=== PATIENT | male | born 1960 | race American Indian/Alaskan Native ===

== ENCOUNTER 2017-08-18 09:24 | Emergency (ER) | payer OTHER ==
[2017-08-18 09:25] VITALS: BMI 29.6
[2017-08-18 09:35] VITALS: RESP 18; TEMP 97.5
[2017-08-18] MEDS ORDERED: Albuterol-Ipratrop 3 mg / 0.5 (3 ml) UD ONE (09:49)
--- NOTE | 2017-08-18 09:54 | C.PDOC ---
History Of Present Illness 56-YEAR-OLD MALE, PRESENTS TO THE EMERGENCY DEPARTMENT WITH COMPLAINTS OF RECUR FACIAL IRRITATION, "LEAKING" X 3 DAYS. B/L LOWER FACE, PERIORAL. +OCC CRUSTING, IRRITATION. "LIQUID COMES OUT AND AREA FEELS TIGHT". PS FIRST OCCURRED 1 MO AGO , S/P UNK ABX FINISHED 1 WEEK AGO. SX INITIALLY RESOLVED W ABX BUT NOW RECUR. NO FEVER. DENIES HO DM, TRAUMA. DENIES DENTAL PAIN, INTRAORAL DRAINAGE. PS HAS NOT SHAVED SINCE SX FIRST OCCURRED ALSO CO ASTHMA EXAC NAVAL ARCHITECT. S/P NEB NAVAL ARCHITECT W MOD RELIEF. CO PERSIST WHEEZE EXAM MILD DIST NONTOXIC HEENT NEG SKIN SUPERFICIAL LESION B/L PERIORAL W MIN LOCAL INDURATION. CLEAR, WATERY FILM POSSIBLE IMPETIGO? LIMITED DUE TO FACIAL HAIR AND SKIN TONE. NO ULCERATION, GROSS ERYTHEMA. LUNGS +GROSS AUDIBLE EXP WHEEZE NO RETRACTION SPEAKING FULL SENTENCES Time Seen by Provider: 08/18/17 09:47 Chief Complaint (Nursing): Abnormal Skin Integrity History Per: Patient History/Exam Limitations: no limitations Onset/Duration Of Symptoms: Days Current Symptoms Are (Timing): Still Present Past Medical History Reviewed: Historical Data, Nursing Documentation, Vital Signs Vital Signs: Last Vital Signs Temp 97.5 F L 08/18/17 09:28 Pulse 75 08/18/17 10:18 Resp 18 08/18/17 10:18 BP 132/74 08/18/17 10:18 Pulse Ox 97 08/18/17 10:18 - Medical History PMH: Asthma, Bronchitis, COPD - [facility] Procedures TETANUS TOXOID ADMINIST (03/25/14) Family History: States: No Known Family Hx - Social History Hx Tobacco Use: No Hx Alcohol Use: No Hx Substance Use: No - Immunization History Hx Tetanus Toxoid Vaccination: No Hx Influenza Vaccination: No Hx Pneumococcal Vaccination: No Review Of Systems Except As Marked, All Systems Reviewed And Found Negative. Constitutional: Positive for: Other (facial irritation and leaking). Negative for: Fever Cardiovascular: Negative for: Chest Pain Gastrointestinal: Negative for: Nausea, Vomiting Neurological: Negative for: Weakness, Numbness Physical Exam - Physical Exam Appears: Non-toxic, No Acute Distress, Other (mild distress) Skin: Warm, Dry, Other (SUPERFICIAL LESION B/L PERIORAL W MIN LOCAL INDURATION. CLEAR, WATERY FILM POSSIBLE IMPETIGO? LIMITED DUE TO FACIAL HAIR AND SKIN TONE. NO ULCERATION, GROSS ERYTHEMA.) Head: Atraumatic, Normacephalic Eye(s): bilateral: Normal Inspection, PERRL Nose: Normal Oral Mucosa: Moist Lips: Normal Appearing Neck: Normal ROM Chest: Symmetrical Cardiovascular: Rhythm Regular, No Murmur Respiratory: No Accessory Muscle Use, Other (+GROSS AUDIBLE EXP WHEEZE NO RETRACTION SPEAKING FULL SENTENCES) Extremity: Normal ROM ED Course And Treatment O2 Sat by Pulse Oximetry: 96 Reevaluation Time: 10:13 Reassessment Condition: Improved (PS TOOK AUGMENTIN AND BACTRIM "BUT SOMETIMES I MISSED DOSES". DC TOPICAL ABX, ADVISED FU DERMATOLOGY IF RECUR SX) Disposition Counseled Patient/Family Regarding: Diagnosis, Need For Followup, Rx Given - Disposition Referrals: YOUR,PMD [Other] Disposition: HOME/ ROUTINE Disposition Time: 10:14 Condition: IMPROVED Prescriptions: Mupirocin 2% Ointment [Bactroban Ointment] 22 gm EXT TID #1 tube predniSONE [Prednisone] 60 mg PO DAILY #12 tab Instructions: Impetigo (ED) Forms: [employer] (Mohawk) - Clinical Impression Clinical Impression: Impetigo, Asthma exacerbation - Scribe Statement The provider has reviewed the documentation as recorded by the Scribe (Mali Bernardo) All medical record entries made by the Scribe were at my direction and personally dictated by me. I have reviewed the chart and agree that the record accurately reflects my personal performance of the history, physical exam, medical decision making, and the department course for this patient. I have also personally directed, reviewed, and agree with the discharge instructions and disposition.
[2017-08-18] MEDS ORDERED: Albuterol 0.083% Inhal Sol (2.5 mg/3 mL) UD INH STA (10:00)
[2017-08-18 10:19] VITALS: BP 132/74; PULSE 75
[2017-08-18 18:08] VITALS: O2SAT 96
== END 2017-08-18 10:21 | disposition home or self-care (01) ==
LOC: C.ER 09:24
DX: L01.00 Impetigo, unspecified (principal); J45.901 Unspecified asthma with (acute) exacerbation

== ENCOUNTER 2017-09-09 22:18 | Emergency (ER) | payer OTHER ==
[2017-09-09 22:18] VITALS: BMI 29.6
[2017-09-09 22:30] VITALS: BP 165/79; PULSE 89; RESP 20; TEMP 98; O2SAT 95
[2017-09-09] MEDS ORDERED: Albuterol-Ipratrop 3 mg / 0.5 (3 ml) UD ONE (22:53)
[2017-09-09] MEDS: Albuterol 0.083% Inhal Sol (2.5 mg/3 mL) UD INH SCH (23:20)
--- NOTE | 2017-09-09 23:48 | C.PDOC ---
History Of Present Illness 56 year old male presents to the ER with a complaint of intermittent bumps to the face for the past month at his hairline. Patient was seen at [facility] and started on antibiotics, reports he was seen here as well and given antibiotic ointment with no relief. Patient also complains of asthma exacerbation, he reports having some chest tightness and wheezing; he took his albuterol at home with no relief. Denies chest pain or drainage. (Annette Oconnor) History Per: Patient History/Exam Limitations: no limitations Onset/Duration Of Symptoms: Days Current Symptoms Are (Timing): Still Present Location Of Injury: Anterior: Face (bumps) Recent travel outside of the [place]: No Time Seen by Provider: 09/09/17 22:37 Chief Complaint (Nursing): Abnormal Skin Integrity Past Medical History Reviewed: Historical Data, Nursing Documentation, Vital Signs - Medical History PMH: Asthma, Bronchitis, COPD Surgical History: No Surg Hx Family History: States: Unknown Family Hx - Social History Hx Tobacco Use: No Hx Alcohol Use: No Hx Substance Use: No - Immunization History Hx Tetanus Toxoid Vaccination: No Hx Influenza Vaccination: No Hx Pneumococcal Vaccination: No Vital Signs: Last Vital Signs Temp 98 F 09/09/17 22:24 Pulse 89 09/09/17 22:24 Resp 20 09/09/17 22:24 BP 165/79 H 09/09/17 22:24 Pulse Ox 95 09/10/17 06:20 - [facility] Procedures TETANUS TOXOID ADMINIST (03/25/14) Review Of Systems Respiratory: Positive for: Wheezing, Other (Chset tightness). Negative for: Cough Skin: Positive for: Rash. Negative for: Other (Drainage) Physical Exam - Physical Exam Appears: Non-toxic, No Acute Distress Skin: Warm, Dry, Rash (Multiple palpable, indurated tender pimple-like lesions to beardline with 2 small nonfluctuant wounds; decreased visualization due to facial hair) Head: Atraumatic, Normacephalic Eye(s): bilateral: Normal Inspection Oral Mucosa: Moist Chest: Symmetrical, No Tenderness Cardiovascular: Rhythm Regular Respiratory: No Rales, Rhonchi (Scattered), Wheezing (Scattered) Neurological/Psych: Oriented x3, Normal Speech ED Course And Treatment O2 Sat by Pulse Oximetry: 95 (Room air) Pulse Ox Interpretation: Normal Progress Note: Benadryl, prednisone, and albuterol nebulizer administered. On reevaluation, patient reports improvement wheezing, has clear breath sounds, and no longer feels irritation to the face. Will discharge home with instructions to follow up with PMD for further evaluation. Disposition Counseled Patient/Family Regarding: Diagnosis, Need For Followup, Rx Given - Disposition Disposition Time: 23:45 - Disposition Referrals: [facility] at [facility] [Outside] Disposition: HOME/ ROUTINE Condition: STABLE Additional Instructions: Increase PO fluids Take meds as directed follow up in clinic Return to ER if worse Instructions: Asthma (ED) Forms: [employer] (Spanish) - Clinical Impression Clinical Impression: Asthma exacerbation, Folliculitis hafsa - PA / BLOOD TESTER / Resident Statement MD/DO has reviewed & agrees with the documentation as recorded. - Scribe Statement The provider has reviewed the documentation as recorded by the Scribe - Scribe Statement Alonso Rodriguez All medical record entries made by the Scribe were at my direction and personally dictated by me. I have reviewed the chart and agree that the record accurately reflects my personal performance of the history, physical exam, medical decision making, and the department course for this patient. I have also personally directed, reviewed, and agree with the discharge instructions and disposition. (Annette Oconnor) I did not evaluate this patient myself. In reading the chart it seems to comply with standard of care. (Christine Mathew)
== END 2017-09-09 23:56 | disposition home or self-care (01) ==
LOC: C.ER 22:18
DX: J45.901 Unspecified asthma with (acute) exacerbation (principal); L73.8 Other specified follicular disorders; F17.210 Nicotine dependence, cigarettes, uncomplicated

== ENCOUNTER 2017-10-12 01:28 | Emergency (ER) | payer SELFPAY ==
[2017-10-12 01:30] VITALS: BMI 29.6
[2017-10-12] MEDS ORDERED: Albuterol-Ipratrop 3 mg / 0.5 (3 ml) UD ONE (01:52)
[2017-10-12] MEDS ORDERED: Albuterol-Ipratrop 3 mg / 0.5 (3 ml) UD IH STA (02:03)
[2017-10-12] MEDS ORDERED: Albuterol-Ipratrop 3 mg / 0.5 (3 ml) UD INH STA ×2 (02:53)
--- NOTE | 2017-10-12 04:19 | C.PDOC ---
History Of Present Illness 57 year old male with a Hx of asthma presents to the ER with a complaint of wheezing and productive cough for the past 2 days. Denies chest pain, nausea, or vomiting. Time Seen by Provider: 10/12/17 02:03 Chief Complaint (Nursing): Shortness Of Breath History Per: Patient History/Exam Limitations: no limitations Onset/Duration Of Symptoms: Days Current Symptoms Are (Timing): Still Present Associated Symptoms: Productive Cough, Other (Wheezing) Recent travel outside of the [place]: No Past Medical History Reviewed: Historical Data, Nursing Documentation, Vital Signs Vital Signs: Last Vital Signs Temp 98.1 F 10/12/17 01:59 Pulse 61 10/12/17 01:59 Resp 24 10/12/17 02:21 BP 132/71 10/12/17 01:59 Pulse Ox 98 10/12/17 05:15 - Medical History PMH: Asthma, Bronchitis, COPD - [facility] Procedures TETANUS TOXOID ADMINIST (03/25/14) Family History: States: Unknown Family Hx - Social History Hx Tobacco Use: No Hx Alcohol Use: No Hx Substance Use: No - Immunization History Hx Tetanus Toxoid Vaccination: No Hx Influenza Vaccination: No Hx Pneumococcal Vaccination: No Review Of Systems Constitutional: Negative for: Fever, Chills Respiratory: Positive for: Cough, Sputum, Wheezing Gastrointestinal: Negative for: Nausea, Vomiting Physical Exam - Physical Exam Appears: Non-toxic, No Acute Distress Skin: Normal Color, Warm, Dry Head: Atraumatic, Normacephalic Eye(s): bilateral: Normal Inspection Oral Mucosa: Moist Throat: Normal, No Erythema, No Exudate Neck: Normal, Supple Chest: Symmetrical, No Tenderness Cardiovascular: Rhythm Regular Respiratory: No Rales, No Rhonchi, Wheezing Gastrointestinal/Abdominal: Soft, No Tenderness Neurological/Psych: Oriented x3, Normal Speech ED Course And Treatment O2 Sat by Pulse Oximetry: 98 (Room air) Pulse Ox Interpretation: Normal - Radiology CXR: Interpreted by Me, Viewed By Me CXR Interpretation: Yes: No Acute Disease Progress Note: CXR ordered, results were negative. Albuterol nebulizer administered with some improvement of wheezing. On reevaluation, patient is no longer wheezing, has clear breath sounds, and feels comfortable going home. Will discharge home with Rx and instructions to follow up with PMD. Disposition - Disposition Referrals: [facility] at [facility] [Outside] Disposition: HOME/ ROUTINE Disposition Time: 05:10 Condition: STABLE Additional Instructions: Follow up in Clinic within 1-2 days. Return to Ed if feel worse. Prescriptions: Fluticasone/Salmeterol [Advair 250-50 Diskus] 1 each IH BID #1 blst.w.dev Albuterol 0.083% [Albuterol Sulfate 3 Ml] 3 ml IH .Q4-6H #100 vial Mupirocin 2% Ointment [Bactroban Ointment] 1 appl TP BID #1 tube predniSONE [predniSONE Tab] 2 tab PO DAILY #8 tab Albuterol HFA [Ventolin HFA 90 mcg/actuation (8 g)] 1 puff IH .Q4-6H #1 inhaler Instructions: Asthma (ED) Forms: [employer] (Nepali) - Clinical Impression Clinical Impression: Asthma exacerbation - PA / SOFTWARE QUALITY SPECIALIST / Resident Statement MD/DO has reviewed & agrees with the documentation as recorded. - Scribe Statement The provider has reviewed the documentation as recorded by the Scribsharda Rodriguez All medical record entries made by the Scribe were at my direction and personally dictated by me. I have reviewed the chart and agree that the record accurately reflects my personal performance of the history, physical exam, medical decision making, and the department course for this patient. I have also personally directed, reviewed, and agree with the discharge instructions and disposition.
--- NOTE | 2017-10-12 04:39 | RAD ---
HISTORY: cough/wheezing COMPARISON: Chest x-ray performed 07/31/17 TECHNIQUE: Chest PA and lateral FINDINGS: Examination limited by habitus. LUNGS: Patchy retrocardiac opacity favored to reflect pneumonia or atelectasis. Please note that chest x-ray has limited sensitivity for the detection of pulmonary masses. PLEURA: No significant pleural effusion identified. No definite pneumothorax . CARDIOVASCULAR: The cardiomediastinal silhouette appears within normal limits of size. OSSEOUS STRUCTURES: No acute osseous abnormality identified. VISUALIZED UPPER ABDOMEN: Unremarkable. OTHER FINDINGS: None. IMPRESSION: Patchy retrocardiac opacity favored to reflect pneumonia or atelectasis. Recommend follow-up to complete resolution. Correlate clinically. Study marked for PA review.
[2017-10-12 05:44] VITALS: BP 102/68; PULSE 84; RESP 20; TEMP 98.7; O2SAT 100
== END 2017-10-12 05:44 | disposition home or self-care (01) ==
LOC: C.ER 01:28
DX: J45.901 Unspecified asthma with (acute) exacerbation (principal)

== ENCOUNTER 2017-10-23 11:34 | Emergency (ER) | payer SELFPAY ==
[2017-10-23 11:35] VITALS: BMI 30.7
[2017-10-23] MEDS ORDERED: Albuterol 0.083% Inhal Sol (2.5 mg/3 mL) UD ONE (12:08)
[2017-10-23] MEDS ORDERED: Ipratropium 0.02% Inhal Soln (0.5 mg/2.5 ml) UD IH ONE (12:08)
[2017-10-23 12:27] VITALS: RESP 14
--- NOTE | 2017-10-23 12:47 | C.PDOC ---
History Of Present Illness 57 year old male presents to the ED c/o a sudden onset of facial lesions for the past couple of days. Patient was seen in the ED by me on 08/18 for smimilar complaints and lesions to his right side of the mouth, patient was given mupirocin he states used it and had resolution. Patient finished his medication a week ago and followed up with the clinic where he was switched to a "new cream ". Patient states that triggered the same lesions, tried the clinic cream with no relief. Patient states he plans to follow up with the metal control worker. Patient has a secondary complaint of asthma, patient was seen here on 10/17 for same symptoms, patient states he finished his prednisone as well. Patient denies fever, chills, cough, CP, headache. Chief Complaint (Nursing): Respiratory Distress History Per: Patient History/Exam Limitations: no limitations Onset/Duration Of Symptoms: Hrs Current Symptoms Are (Timing): Still Present Location Of Injury: Right: Face, Left: Face, Anterior: Face Quality Of Symptoms: Itching Severity: None Recent travel outside of the [place] States: No Additional History Per: Patient Past Medical History Reviewed: Historical Data, Nursing Documentation, Vital Signs Vital Signs: Last Vital Signs Temp 98.4 F 10/23/17 13:04 Pulse 64 10/23/17 13:04 Resp 14 10/23/17 13:04 BP 126/81 10/23/17 13:04 Pulse Ox 96 10/23/17 13:30 - Medical History PMH: Asthma, Bronchitis, COPD Surgical History: No Surg Hx - [facility] Procedures TETANUS TOXOID ADMINIST (03/25/14) Family History: States: Unknown Family Hx - Social History Hx Tobacco Use: No Hx Alcohol Use: No Hx Substance Use: No - Immunization History Hx Tetanus Toxoid Vaccination: No Hx Influenza Vaccination: No Hx Pneumococcal Vaccination: No Review Of Systems Constitutional: Negative for: Fever, Chills Cardiovascular: Negative for: Chest Pain, Palpitations Respiratory: Positive for: Shortness of Breath. Negative for: Cough Gastrointestinal: Negative for: Nausea, Vomiting, Abdominal Pain Musculoskeletal: Negative for: Back Pain Skin: Positive for: Lesions Neurological: Negative for: Weakness, Numbness Physical Exam - Physical Exam Appears: Non-toxic, No Acute Distress Skin: Warm, Dry, Other (B/L lesions on perioral area and chin, + impetigo) Head: Atraumatic, Normacephalic Eye(s): bilateral: Normal Inspection Nose: No Discharge, No Deformity Oral Mucosa: Moist Tongue: No Swelling Lips: No Swelling, No Other (angioedema) Neck: Normal ROM, Supple Chest: Symmetrical Cardiovascular: Rhythm Regular, No Murmur Respiratory: Normal Breath Sounds, No Rales, No Rhonchi, No Wheezing, Other (SP nebulizer treatment ) Gastrointestinal/Abdominal: Soft, No Tenderness, No Guarding, No Rebound Extremity: Normal ROM, No Pedal Edema, No Calf Tenderness, No Deformity, No Swelling Neurological/Psych: Oriented x3, Normal Speech, Normal Cognition Gait: Steady ED Course And Treatment O2 Sat by Pulse Oximetry: 96 (On RA) Pulse Ox Interpretation: Normal Medical Decision Making Medical Decision Making: Impression: facial lesions, asthma Disposition Counseled Patient/Family Regarding: Diagnosis, Need For Followup, Rx Given - Disposition Referrals: [facility] [employer] [Outside] [facility] [Outside] Disposition: HOME/ ROUTINE Disposition Time: 12:46 Condition: IMPROVED Prescriptions: Albuterol HFA [Ventolin HFA 90 mcg/actuation (8 g)] 1 puff IH Q4 #1 inhaler Mupirocin 2% Ointment [Bactroban Ointment] 1 appl TP BID #1 tube Sulfamethoxazole/Trimethoprim [Bactrim DS 800 mg-160 mg] 1 tab PO BID #14 tab Instructions: Impetigo (ED) Forms: [employer] (Irish) - Clinical Impression Clinical Impression: Impetigo, Asthma exacerbation - Scribe Statement The provider has reviewed the documentation as recorded by the Scribe Chinmay Nina All medical record entries made by the Scribe were at my direction and personally dictated by me. I have reviewed the chart and agree that the record accurately reflects my personal performance of the history, physical exam, medical decision making, and the department course for this patient. I have also personally directed, reviewed, and agree with the discharge instructions and disposition.
[2017-10-23 13:05] VITALS: BP 126/81; PULSE 64; TEMP 98.4
[2017-10-23 13:24] VITALS: O2SAT 96
== END 2017-10-23 13:04 | disposition home or self-care (01) ==
LOC: C.ER 11:34
DX: L01.00 Impetigo, unspecified (principal); J45.901 Unspecified asthma with (acute) exacerbation

== ENCOUNTER 2017-10-25 18:32 | Inpatient (IN) | payer SELFPAY ==
[2017-10-25 18:33] VITALS: BMI 30.7
--- NOTE | 2017-10-25 19:21 | C.PDOC ---
History Of Present Illness Patient is a 57 y/o male who presents to the ED with a complaint of worsening SOB since Saturday. Patient admits to have taken solumedrol 125mg, 2g magnesium sulfate, and 3 nebulizer treatments and feels slightly better; denies any relief from inhaler. Denies any fever, cough, nausea, vomiting, or CP. No other physical complaints at this time. Time Seen by Provider: 10/25/17 19:20 Chief Complaint (Nursing): Respiratory Distress History Per: Patient History/Exam Limitations: no limitations Onset/Duration Of Symptoms: Days (since Saturday), Worse Since Current Symptoms Are (Timing): Still Present Initiating Event: Upper Respiratory Illness Exacerbating Factor(s): Coughing Current Respiratory Medications: See Home Med List, Albuterol, Steroid Inhaler Severity: Moderate Pain Scale Rating Of: 5 Associated Symptoms: denies: Fever, Chills, Sweating Reports Recently: Treated By A Physician Recent travel outside of the [place]: No Additional History Per: Patient Past Medical History Reviewed: Historical Data, Nursing Documentation, Vital Signs Vital Signs: Last Vital Signs Temp 97.6 F 10/25/17 18:53 Pulse 64 10/25/17 20:31 Resp 18 10/25/17 20:31 BP 130/65 10/25/17 20:31 Pulse Ox 96 10/25/17 20:31 - Medical History PMH: Asthma, Bronchitis, COPD Surgical History: No Surg Hx - [facility] Procedures TETANUS TOXOID ADMINIST (03/25/14) Family History: States: No Known Family Hx - Social History Hx Tobacco Use: No Hx Alcohol Use: No Hx Substance Use: No - Immunization History Hx Tetanus Toxoid Vaccination: No Hx Influenza Vaccination: No Hx Pneumococcal Vaccination: No Review Of Systems Constitutional: Negative for: Fever, Chills Eyes: Negative for: Redness ENT: Negative for: Throat Pain Cardiovascular: Negative for: Chest Pain Respiratory: Positive for: Shortness of Breath. Negative for: Cough Gastrointestinal: Negative for: Nausea, Vomiting Musculoskeletal: Negative for: Back Pain Skin: Negative for: Rash Neurological: Negative for: Weakness Psych: Negative for: Anxiety Physical Exam - Physical Exam Appears: Well, Non-toxic Skin: Warm, Dry Head: Normacephalic Eye(s): bilateral: Normal Inspection Ear(s): Bilateral: Normal (clear) Oral Mucosa: Moist Throat: No Erythema, No Exudate, Other (clear) Neck: Supple Chest: Symmetrical Cardiovascular: Rhythm Regular, No Murmur Respiratory: Decreased Breath Sounds, No Rales, No Rhonchi, Wheezing (diffuse), Other (speaking in complete sentences) Gastrointestinal/Abdominal: Soft, No Tenderness, No Distention Back: No CVA Tenderness Extremity: Normal ROM Extremity: Bilateral: Atraumatic Pulses: Left Dorsalis Pedis: Normal, Right Dorsalis Pedis: Normal Neurological/Psych: Oriented x3 Gait: Steady ED Course And Treatment - Laboratory Results Result Diagrams: 10/25/17 19:29 10/25/17 19:29 O2 Sat by Pulse Oximetry: 96 Progress Note: Plan: EKG, CXR, blood work, and Influenza AB stat ordered. Albuterol and neb treatment administered. Disposition Discussed With : Kendra Masters Comment: accepted the pt on her service and took over the care at 8:44 PM Doctor Will See Patient In The: Hospital Counseled Patient/Family Regarding: Studies Performed, Diagnosis - Disposition Disposition: HOSPITALIZED Disposition Time: 19:21 Condition: FAIR Forms: [employer] (Persian) - POA Present On Arrival: None - Clinical Impression Clinical Impression: Dyspnea, Asthma exacerbation - Scribe Statement The provider has reviewed the documentation as recorded by the Scribe Olga Price All medical record entries made by the Scribe were at my direction and personally dictated by me. I have reviewed the chart and agree that the record accurately reflects my personal performance of the history, physical exam, medical decision making, and the department course for this patient. I have also personally directed, reviewed, and agree with the discharge instructions and disposition. Decision To Admit - Pt Status Changed To: Hospital Disposition Of: Inpatient - Admit Certification Admit to Inpatient:: After my assessment, the patient will require hospitalization for at least two midnights. This is because of the severity of symptoms shown, intensity of services needed, and/or the medical risk in this patient being treated as an outpatient. - InPatient: Physician Admission Certification: I certify that this patient requires 2 or more midnights of care for the following reason:: After my assessment, the patient will require hospitalization for at least two midnights. This is because of the severity of symptoms shown, intensity of services needed, and/or the medical risk in this patient being treated as an outpatient. - . Bed Request Type: Regular Admitting Physician: Kendra Masters Patient Diagnosis: Dyspnea, Asthma exacerbation
[2017-10-25] MEDS ORDERED: Albuterol-Ipratrop 3 mg / 0.5 (3 ml) UD ONE ×2 (19:30→22:35)
[2017-10-25 19:32] LABS: BASO # 0.1 K/uL (0.0-0.2); BASO % 0.8 % (0.0-2.0); EOS # 0.6 K/uL (0.0-0.7); EOS % 9.8 % (0.0-4.0); HEMOGLOBIN 14.7 g/dL (12.0-18.0); LYMPH # 2.2 K/uL (1.0-4.3); LYMPH % 33.4 % (20.0-40.0); MEAN CELL VOLUME 92.3 fL (80.0-94.0); MEAN CORPUSCULAR HEMOGLOBIN 31.9 pg (27.0-31.0); MEAN CORPUSCULAR HGB CONC 34.5 g/dL (33.0-37.0); MONO # 0.7 K/uL (0.0-0.8); MONO % 11.2 % (0.0-10.0); NEUT # 2.9 K/uL (1.8-7.0); NEUT % 44.8 % (50.0-75.0); RBC 4.6 Mil/uL (4.40-5.90); RED CELL DISTRIBUTION WIDTH 13.7 % (11.5-14.5); WHITE BLOOD COUNT 6.6 K/uL (4.8-10.8)
[2017-10-25 19:45] LABS: ALB/GLOB RATIO 1.5 (1.0-2.1); CALCIUM 8.6 mg/dl (8.6-10.4)
[2017-10-25] MEDS: Albuterol-Ipratrop 3 mg / 0.5 (3 ml) UD IH SCH ×2 (19:55→21:48)
[2017-10-25] MEDS ORDERED: MethylPREDNISolone 40 mg Vial ONE (22:34)
[2017-10-25] MEDS: MethylPREDNISolone 40 mg Vial IVP SCH (22:35)
--- NOTE | 2017-10-26 05:06 | HP ---
CHIEF COMPLAINT: Shortness of breath. HISTORY OF PRESENT ILLNESS: Mr. John Walker is a 57-year-old male, came to the emergency room with worsening shortness of breath since Saturday. Patient admits to have taken Solu-Medrol 125, 2 g magnesium sulfate, and 3 nebulizer treatment and feels slightly better. Denies any relief from inhaler. Denies any fever or chills, cough, nausea, vomiting, diarrhea. No hematuria. No hematochezia. No sweating. Treated by her own private physician. No history of recent travel. PAST MEDICAL HISTORY: Asthma, bronchitis, COPD. PAST SURGICAL HISTORY: No surgical history. FAMILY HISTORY: No known family history. HABITS: No smoking, no drugs, no ethanol. HOME MEDICATIONS: Albuterol, steroids. ALLERGIES: THE PATIENT IS NOT ALLERGIC WITH ANY MEDICATIONS. REVIEW OF SYSTEMS: The patient is seen and examined at the bedside, looking comfortable. No nausea, vomiting or coughing. No fever. No chills. No headache or dizziness. PHYSICAL EXAMINATION: VITAL SIGNS: Temperature 97.6, pulse 64, respiratory rate 18, blood pressure 130/65. HEENT: Head is normocephalic, atraumatic. Eyes, PERRLA. Extraocular muscles are intact. Conjunctivae clear. Nose is patent. Mucous membrane moist. NECK: Supple. No carotid bruit. No JVD or thyromegaly. CHEST: Bilaterally symmetrical. HEART: S1 and S2 positive. LUNGS: Positive wheezing bilaterally, diffuse breath sounds, wheezing is diffuse. Speaking in incomplete sentence. ABDOMEN: Soft. Bowel sounds positive. No organomegaly. EXTREMITIES: No edema. No cyanosis. NEUROLOGICAL: The patient is awake and alert. Moving all 4 extremities. No focal deficits, oriented x3. LABORATORY DATA: White blood cells 6.6, hemoglobin 14.7, hematocrit 42.4, platelets 317. Sodium 132, potassium 3.7, BUN 18, creatinine 1.5, glucose 100. ASSESSMENT AND PLAN: Mr. John Walker is 57-year-old male, came with dyspnea, shortness of breath, admitted for asthma exacerbation. Has a history of asthma, bronchitis and chronic obstructive pulmonary disease. We admitted the patient. Put consult with Dr. Calros Peters, nebulizer treatment given, steroids given. Repeat labs. We will follow up. Kendra Masters MD
[2017-10-26 06:32] LABS: HEMOGLOBIN 14.3 g/dL (12.0-18.0); MEAN CELL VOLUME 93.4 fL (80.0-94.0); MEAN CORPUSCULAR HGB CONC 35.3 g/dL (33.0-37.0); RBC 4.33 Mil/uL (4.40-5.90); RED CELL DISTRIBUTION WIDTH 13.4 % (11.5-14.5)
--- NOTE | 2017-10-26 06:38 | RAD ---
Chest x-ray single frontal view History: Shortness of breath. Comparison: 10/12/2017 Findings: No focal infiltrate or effusion. Heart size within normal limits. Impression: No focal infiltrate or effusion.
[2017-10-26 06:51] LABS: HDL CHOLESTEROL 59 mg/dL (30-70)
[2017-10-26 06:57] LABS: CALCIUM 9.2 mg/dl (8.6-10.4)
[2017-10-26 07:02] LABS: LDL CHOLESTEROL 76 mg/dL (0-129)
[2017-10-26] MEDS: Albuterol-Ipratrop 3 mg / 0.5 (3 ml) UD IH SCH ×3 (08:57→20:46)
[2017-10-26] MEDS: Budesonide 0.5 mg/2 ml Inhal Susp UD INH SCH ×2 (08:57→20:46)
[2017-10-26] MEDS ORDERED: Azithromycin 500 MG in Sodium Chloride 0.9% 250 ML IVPB SCH (10:00)
[2017-10-26] MEDS: MethylPREDNISolone 40 mg Vial IVP SCH ×2 (11:00→22:05)
[2017-10-26] MEDS: Enoxaparin 40 mg Syringe SC SCH (11:00)
[2017-10-26] MEDS: Tmp-Smz 800 mg-160 mg DS Tab PO SCH (13:41)
[2017-10-26 14:43] VITALS: RESP 20
--- NOTE | 2017-10-26 15:21 | CP.PCM.CON ---
History of Present Illness - History of Present Illness History of Present Illness: reason for consultation: shortness of breath 57-year-old male with asthma presented to emergency room with worsening shortness of breath since Saturday. Denies fever chills, denies chest pain. Patient states he developed swelling of face after taking outpatient antibiotic. Breathing and cough slightly better Review of Systems - Review of Systems All systems: reviewed and no additional remarkable complaints except (shortness of breath) Past Patient History - Infectious Disease Hx of Infectious Diseases: None - Tetanus Immunizations Tetanus Immunization: Up to Date - Past Medical History & Family History Past Medical History?: Yes - Past Social History Smoking Status: Former Smoker - PULMONARY Hx Asthma: Yes Hx Bronchitis: Yes Hx Chronic Obstructive Pulmonary Disease (COPD): Yes - MUSCULOSKELETAL/RHEUMATOLOGICAL Hx Falls: No - PSYCHIATRIC Hx Substance Use: No - SURGICAL HISTORY Hx Surgeries: No - ANESTHESIA Hx Anesthesia: No Meds Allergies/Adverse Reactions: Allergies Allergy/AdvReac Type Severity Reaction Status Date / Time No Known Allergies Allergy Verified 10/25/17 18:44 - Medications Medications: Current Medications Acetaminophen (Tylenol 325mg Tab) 650 mg PO Q4H PRN PRN Reason: pain fever Albuterol/Ipratropium (Duoneb 3 Mg/0.5 Mg (3 Ml) Ud) 3 ml IH RQ6 [facility] Last Admin: 10/26/17 14:38 Dose: 3 ml Budesonide (Pulmicort Respules) 0.5 mg INH RQ12 [facility] Last Admin: 10/26/17 08:57 Dose: 0.5 mg Enoxaparin Sodium (Lovenox) 40 mg SC DAILY [facility] Last Admin: 10/26/17 11:00 Dose: 40 mg Famotidine (Pepcid) 40 mg PO DAILY [facility] Last Admin: 10/26/17 12:08 Dose: 40 mg Fluticasone Propionate (Flonase) 0 spr CATHLEEN BID [facility] Methylprednisolone (Solu-Medrol) 40 mg IVP Q12 [facility] Last Admin: 10/26/17 11:00 Dose: 40 mg Mupirocin (Bactroban Ointment) 0 gm TOP BID [facility] Saccharomyces Boulardii (Florastor) 250 mg PO BID [facility] Trimethoprim/Sulfamethoxazole (Bactrim Ds Tab) 1 tab PO Q12H [facility] Stop: 10/30/17 12:45 Last Admin: 10/26/17 13:41 Dose: 1 tab Physical Exam - Head Exam Head Exam: ATRAUMATIC, NORMOCEPHALIC - Eye Exam Eye Exam: Normal appearance - ENT Exam ENT Exam: Mucous Membranes Moist - Neck Exam Neck exam: Positive for: Normal Inspection - Respiratory Exam Respiratory Exam: Rhonchi - Cardiovascular Exam Cardiovascular Exam: REGULAR RHYTHM - GI/Abdominal Exam GI & Abdominal Exam: Normal Bowel Sounds, Soft Results - Vital Signs Recent Vital Signs: Last Vital Signs Temp 98 F 10/26/17 08:00 Pulse 71 10/26/17 08:00 Resp 20 10/26/17 08:00 BP 137/81 10/26/17 08:00 Pulse Ox 96 10/26/17 08:00 - Labs Result Diagrams: 10/26/17 06:22 10/26/17 06:22 Labs: Laboratory Results - last 24 hr 10/25/17 10/25/17 10/25/17 19:29 19:29 19:38 WBC 6.6 RBC 4.60 Hgb 14.7 Hct 42.4 MCV 92.3 MCH 31.9 H MCHC 34.5 RDW 13.7 Plt Count 317 MPV 8.0 Neut % (Auto) 44.8 L Lymph % (Auto) 33.4 [place] % (Auto) 11.2 H Eos % (Auto) 9.8 H Baso % (Auto) 0.8 Neut # 2.9 Lymph # 2.2 [place] # 0.7 Eos # 0.6 Baso # 0.1 Sodium 132 Potassium 3.7 Chloride 100 Carbon Dioxide 28 Anion Gap 8 L BUN 18 Creatinine 1.5 Est GFR ( Amer) 59 Est GFR (Non-Af Amer) 49 Random Glucose 100 Calcium 8.6 Total Bilirubin 0.3 AST 22 ALT 23 Alkaline Phosphatase 88 Total Protein 6.7 Albumin 4.0 Globulin 2.7 Albumin/Globulin Ratio 1.5 Triglycerides Cholesterol LDL Cholesterol Direct HDL Cholesterol TSH 3rd Generation Influenza Typ A,B (EIA) Negative for flu a/b 10/26/17 10/26/17 10/26/17 06:22 06:22 06:22 WBC 10.0 D RBC 4.33 L Hgb 14.3 Hct 40.4 MCV 93.4 MCH 33.0 H MCHC 35.3 RDW 13.4 Plt Count 308 MPV 8.0 Neut % (Auto) Lymph % (Auto) [place] % (Auto) Eos % (Auto) Baso % (Auto) Neut # Lymph # [place] # Eos # Baso # Sodium 134 Potassium 5.2 Chloride 100 Carbon Dioxide 25 Anion Gap 14 BUN 20 Creatinine 1.5 Est GFR ( Amer) 59 Est GFR (Non-Af Amer) 49 Random Glucose 209 H Calcium 9.2 Total Bilirubin AST ALT Alkaline Phosphatase Total Protein Albumin Globulin Albumin/Globulin Ratio Triglycerides 49 D Cholesterol 165 LDL Cholesterol Direct 76 HDL Cholesterol 59 TSH 3rd Generation 0.19 L Influenza Typ A,B (EIA) Assessment & Plan (1) Asthma exacerbation Status: Acute Comment: continue IV steroids. Continue nebulizer treatment. Antibiotics. Peak flow. Pulmonary function test
[2017-10-26] MEDS: Saccharomyces Boulardi 250 mg Cap PO SCH (17:39)
[2017-10-26] MEDS: Fluticasone Nasal 50 mcg/Spray NAS SCH (18:00)
[2017-10-26] MEDS ORDERED: Saccharomyces Boulardi 250 mg Cap PO SCH (18:00)
--- NOTE | 2017-10-26 19:20 | CP.PCM.HP ---
History of Present Illness - History of Present Illness History of Present Illness: Hospitalist Admission H&P Please note that this patient was admitted to Dr. Dorcas Baker on evening of . However, as patient is uninsured, she transferred care over to [facility]. PMD: none CODE STATUS: FULL CODE. NO advance directive. Designates Mother Myesha as his health care proxy. CC: "Not able to breath properly" 57 year old male who presented to [facility] ER on 10/25/17 with a chief complaint of not being able to breathe properly since this past Saturday. Patient states that he has a history of Asthma and since Saturday he has been using his albuterol nebulizer 7 to 8 times a day. It was helping him resolve and improve his breathing but stated that as time wore on, there length of time of relief was shorter and shorter and therefore he came in to the emergency room. He has never been intubated for his Asthma, no pets at home, no carpeting/ cieling fans. Please note that he smokes 1 pack of cigarettes per day for the past 8 years and continued to do so these past few days. ROS: NO chest pain NO palpitations NO coughing SOB and wheezing are much improved since his admission and the start of steroids and breathing treatments and not smoking since his admission NO abdominal pain NO n/v/d/c NO black stools however there is was bright red blood on tissue upon wiping on Saturday and this has happened before NO recent weight loss/weight gain NO buring/pain with urination NO lightheadedness/dizziness NO new changes in vision NO new changes in hearing NO paresthesias NO edema PMHx: Asthma PSHx: Denies ALL: NKDA Medications: Albuterol Nebulizer (obtained from [facility] ER on 10/23/17 when he came in for facial rash) Social Hx: Lives Alone, 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[employer], (+) Tobacco 1 pack per day, NO alcohol, NO illegal drugs Family Hx: Mom (HTN), Dad ("colon problem" in his 60 s), Brothers x 2 (healthy) , Sisters x 2 (healthy) Exam: General: AAOX3, NAD, Speaking in Full Sentences HEENT: NCA, EOMI, PERRLA, NO cervical/supraclavicular/submandibular lymphadenopathy, NO pharyngeal erythema/exudate, Nasal Turbinates are swollen and erythematous, NO thyromegaly Cardio: NS1 and NS2, NO M/R/G Resp: CTA B/L, NO R/R/W GI: BSx4, Soft, NT, ND, NO HSM, NO guarding/rebound tenderness Ext: NO edema, Pulses are strong and equal, Capillary Refill Neuro: CN II through XII are grossly intact Skin: Bilateral Cheeks under his navarro what appears to be impetigo Assessment and Plan: 1). Asthma Exacerbation Duoneb Q6H Solumedrol 40 mg IV Q12H Pulmicort 0.5 mg PO INH Q12H 2). Impetigo Bactrim DS 1 tab PO Q12H for a total of 7 days Bactroban 2% Ointment Topical 2x/day to prevent secondary infection 3). Bright Red Blood Per Rectum Patient is scheduled for Colonoscopy through [facility] on 11/27/17 4). Nicotine Addiction Patient declined Nicotine Patch States that he stopped on his own for 10 years and feels like he can again 5). Prophylaxis Pepcid 40 mg PO 1x/day Florastor 250 mg PO 2x/day Lovenox 40 mg SC 1x/day Disposition: will likely discharge on morning of 10/27/17. José Miguel Quan D.O. Present on Admission - Present on Admission Any Indicators Present on Admission: Yes History of DVT/PE: No History of Uncontrolled Diabetes: No Review of Systems - Review of Systems Review of Systems: See above Past Patient History - Infectious Disease Hx of Infectious Diseases: None - Tetanus Immunizations Tetanus Immunization: Up to Date - Past Medical History & Family History Past Medical History?: Yes Pertinent Family History: See above - Past Social History Smoking Status: Former Smoker - PULMONARY Hx Asthma: Yes Hx Bronchitis: Yes Hx Chronic Obstructive Pulmonary Disease (COPD): Yes - MUSCULOSKELETAL/RHEUMATOLOGICAL Hx Falls: No - PSYCHIATRIC Hx Substance Use: No - SURGICAL HISTORY Hx Surgeries: No - ANESTHESIA Hx Anesthesia: No Meds Allergies/Adverse Reactions: Allergies Allergy/AdvReac Type Severity Reaction Status Date / Time No Known Allergies Allergy Verified 10/25/17 18:44 Physical Exam - Constitutional Additional comments: See above Results - Vital Signs Recent Vital Signs: Last Vital Signs Temp 98 F 10/26/17 08:00 Pulse 71 10/26/17 08:00 Resp 20 10/26/17 08:00 BP 137/81 10/26/17 08:00 Pulse Ox 96 10/26/17 08:00 - Labs Result Diagrams: 10/26/17 06:22 10/26/17 06:22 Labs: Laboratory Results - last 24 hr 10/25/17 10/25/17 10/25/17 19:29 19:29 19:38 WBC 6.6 RBC 4.60 Hgb 14.7 Hct 42.4 MCV 92.3 MCH 31.9 H MCHC 34.5 RDW 13.7 Plt Count 317 MPV 8.0 Neut % (Auto) 44.8 L Lymph % (Auto) 33.4 [place] % (Auto) 11.2 H Eos % (Auto) 9.8 H Baso % (Auto) 0.8 Neut # 2.9 Lymph # 2.2 [place] # 0.7 Eos # 0.6 Baso # 0.1 Sodium 132 Potassium 3.7 Chloride 100 Carbon Dioxide 28 Anion Gap 8 L BUN 18 Creatinine 1.5 Est GFR ( Amer) 59 Est GFR (Non-Af Amer) 49 Random Glucose 100 Calcium 8.6 Total Bilirubin 0.3 AST 22 ALT 23 Alkaline Phosphatase 88 Total Protein 6.7 Albumin 4.0 Globulin 2.7 Albumin/Globulin Ratio 1.5 Triglycerides Cholesterol LDL Cholesterol Direct HDL Cholesterol TSH 3rd Generation Influenza Typ A,B (EIA) Negative for flu a/b 10/26/17 10/26/17 10/26/17 06:22 06:22 06:22 WBC 10.0 D RBC 4.33 L Hgb 14.3 Hct 40.4 MCV 93.4 MCH 33.0 H MCHC 35.3 RDW 13.4 Plt Count 308 MPV 8.0 Neut % (Auto) Lymph % (Auto) [place] % (Auto) Eos % (Auto) Baso % (Auto) Neut # Lymph # [place] # Eos # Baso # Sodium 134 Potassium 5.2 Chloride 100 Carbon Dioxide 25 Anion Gap 14 BUN 20 Creatinine 1.5 Est GFR ( Amer) 59 Est GFR (Non-Af Amer) 49 Random Glucose 209 H Calcium 9.2 Total Bilirubin AST ALT Alkaline Phosphatase Total Protein Albumin Globulin Albumin/Globulin Ratio Triglycerides 49 D Cholesterol 165 LDL Cholesterol Direct 76 HDL Cholesterol 59 TSH 3rd Generation 0.19 L Influenza Typ A,B (EIA)
[2017-10-27] MEDS: Tmp-Smz 800 mg-160 mg DS Tab PO SCH ×2 (00:28→13:17)
[2017-10-27] MEDS: Albuterol-Ipratrop 3 mg / 0.5 (3 ml) UD IH SCH ×3 (01:57→14:07)
[2017-10-27 07:21] LABS: BASO % 0.1 % (0.0-2.0); HEMOGLOBIN 13.9 g/dL (12.0-18.0); LYMPH # 0.7 K/uL (1.0-4.3); LYMPH % 3.3 % (20.0-40.0); MEAN CELL VOLUME 94.3 fL (80.0-94.0); MEAN CORPUSCULAR HEMOGLOBIN 31.4 pg (27.0-31.0); MEAN CORPUSCULAR HGB CONC 33.3 g/dL (33.0-37.0); MEAN PLATELET VOLUME 8.4 fL (7.2-11.7); MONO % 4.7 % (0.0-10.0); NEUT # 20.1 K/uL (1.8-7.0); NEUT % 91.9 % (50.0-75.0); PLATELET COUNT 291 K/uL (130-400); RBC 4.41 Mil/uL (4.40-5.90); RED CELL DISTRIBUTION WIDTH 13.8 % (11.5-14.5); WHITE BLOOD COUNT 21.8 K/uL (4.8-10.8)
[2017-10-27 07:46] LABS: ALB/GLOB RATIO 1.6 (1.0-2.1); ALBUMIN 4.1 g/dL (3.5-5.0); ALT/SGPT 19 U/L (21-72); AST/SGOT 19 U/L (17-59); BLOOD UREA NITROGEN 19 mg/dL (9-20); CALCIUM 9.1 mg/dl (8.6-10.4); GFR AFRICAN-AMERICAN > 60; GFR NON-AFRICAN AMERICAN 57
[2017-10-27] MEDS: Budesonide 0.5 mg/2 ml Inhal Susp UD INH SCH (08:15)
[2017-10-27 09:35] LABS: LYMPHOCYTE 4 % (20-40); MONOCYTE 4 % (0-10); NEUTROPHIL 92 % (50-75); PLATELET ESTIMATE NORMAL (NORMAL); TOTAL CELLS COUNTED 100
[2017-10-27 09:36] LABS: ANISOCYTOSIS SLIGHT; POLYCHROMIC SLIGHT; TOXIC GRANULATION PRESENT
[2017-10-27 09:37] LABS: LARGE PLATELETS PRESENT
[2017-10-27] MEDS: Fluticasone Nasal 50 mcg/Spray NAS SCH (10:49)
[2017-10-27] MEDS: Enoxaparin 40 mg Syringe SC SCH (10:51)
[2017-10-27] MEDS: MethylPREDNISolone 40 mg Vial IVP SCH (10:52)
[2017-10-27] MEDS: Saccharomyces Boulardi 250 mg Cap PO SCH (10:52)
--- NOTE | 2017-10-27 12:23 | CP.PCM.DIS ---
Provider - Provider Date of Admission: 10/25/17 20:40 Attending physician: José Miguel Quan MD Primary care physician: None Consults: [facility] [employer] Dr. Peters Time Spent in preparation of Discharge (in minutes): 40 Hospital Course - Lab Results Lab Results: Most Recent Lab Values WBC 21.8 K/uL (4.8-10.8) H D 10/27/17 07:15 RBC 4.41 Mil/uL (4.40-5.90) 10/27/17 07:15 Hgb 13.9 g/dL (12.0-18.0) 10/27/17 07:15 Hct 41.6 % (35.0-51.0) 10/27/17 07:15 MCV 94.3 fL (80.0-94.0) H 10/27/17 07:15 MCH 31.4 pg (27.0-31.0) H 10/27/17 07:15 MCHC 33.3 g/dL (33.0-37.0) 10/27/17 07:15 RDW 13.8 % (11.5-14.5) 10/27/17 07:15 Plt Count 291 K/uL (130-400) 10/27/17 07:15 MPV 8.4 fL (7.2-11.7) 10/27/17 07:15 Neut % (Auto) 91.9 % (50.0-75.0) H 10/27/17 07:15 Lymph % (Auto) 3.3 % (20.0-40.0) L 10/27/17 07:15 [place] % (Auto) 4.7 % (0.0-10.0) 10/27/17 07:15 Eos % (Auto) 0.0 % (0.0-4.0) 10/27/17 07:15 Baso % (Auto) 0.1 % (0.0-2.0) 10/27/17 07:15 Neut # 20.1 K/uL (1.8-7.0) H 10/27/17 07:15 Lymph # 0.7 K/uL (1.0-4.3) L 10/27/17 07:15 [place] # 1.0 K/uL (0.0-0.8) H 10/27/17 07:15 Eos # 0.0 K/uL (0.0-0.7) 10/27/17 07:15 Baso # 0.0 K/uL (0.0-0.2) 10/27/17 07:15 Neutrophils % (Manual) 92 % (50-75) H 10/27/17 07:15 Lymphocytes % (Manual) 4 % (20-40) L 10/27/17 07:15 Monocytes % (Manual) 4 % (0-10) 10/27/17 07:15 Toxic Granulation Present 10/27/17 07:15 Platelet Estimate Normal (NORMAL) 10/27/17 07:15 Large Platelets Present 10/27/17 07:15 Polychromasia Slight 10/27/17 07:15 Anisocytosis (manual) Slight 10/27/17 07:15 Macrocytosis (manual) Slight 10/27/17 07:15 Sodium 133 mmol/L (132-148) 10/27/17 07:15 Potassium 4.9 mmol/L (3.6-5.2) 10/27/17 07:15 Chloride 100 mmol/L (98-107) 10/27/17 07:15 Carbon Dioxide 22 mmol/L (22-30) 10/27/17 07:15 Anion Gap 16 (10-20) 10/27/17 07:15 BUN 19 mg/dL (9-20) 10/27/17 07:15 Creatinine 1.3 mg/dL (0.8-1.5) 10/27/17 07:15 Est GFR ( Amer) > 60 10/27/17 07:15 Est GFR (Non-Af Amer) 57 10/27/17 07:15 Random Glucose 107 mg/dL (75-110) 10/27/17 07:15 Hemoglobin A1c 5.4 % (4.2-6.5) 10/26/17 06:22 Calcium 9.1 mg/dl (8.6-10.4) 10/27/17 07:15 Phosphorus 3.8 mg/dL (2.5-4.5) 10/27/17 07:15 Magnesium 2.0 mg/dL (1.6-2.3) 10/27/17 07:15 Total Bilirubin 0.5 mg/dL (0.2-1.3) 10/27/17 07:15 AST 19 U/L (17-59) 10/27/17 07:15 ALT 19 U/L (21-72) L 10/27/17 07:15 Alkaline Phosphatase 89 U/L (38-126) 10/27/17 07:15 Total Protein 6.7 g/dL (6.3-8.3) 10/27/17 07:15 Albumin 4.1 g/dL (3.5-5.0) 10/27/17 07:15 Globulin 2.6 gm/dL (2.2-3.9) 10/27/17 07:15 Albumin/Globulin Ratio 1.6 (1.0-2.1) 10/27/17 07:15 Triglycerides 49 mg/dL (0-149) D 10/26/17 06:22 Cholesterol 165 mg/dL (0-199) 10/26/17 06:22 LDL Cholesterol Direct 76 mg/dL (0-129) 10/26/17 06:22 HDL Cholesterol 59 mg/dL (30-70) 10/26/17 06:22 TSH 3rd Generation 0.19 mIU/L (0.46-4.68) L 10/26/17 06:22 Influenza Typ A,B (EIA) Negative for flu a/b (NEGATIVE) 10/25/17 19:38 - Hospital Course Hospital Course: Hospitalist Discharge Summary 57 year old male who presented to [facility] ER on 10/25/17 with a chief complaint of not being able to breathe properly since this past Saturday. Patient states that he has a history of Asthma and since Saturday he has been using his albuterol nebulizer 7 to 8 times a day. It was helping him resolve and improve his breathing but stated that as time wore on, there length of time of relief was shorter and shorter and therefore he came in to the emergency room. He has never been intubated for his Asthma, no pets at home, no carpeting/ cieling fans. Please note that he smokes 1 pack of cigarettes per day for the past 8 years and continued to do so these past few days. Chest X ray did not show any infiltrates/acute process.He was placed on Solumedrol, Duoneb, Pulmicort, and his breathing improved. Please see individual Assessment and Plans below for details. 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[employer], (+) Tobacco 1 pack per day, NO alcohol, NO illegal drugs Family Hx: Mom (HTN), Dad ("colon problem" in his 60 s), Brothers x 2 (healthy) , Sisters x 2 (healthy) Exam: General: AAOX3, NAD, Speaking in Full Sentences HEENT: NCA, EOMI, PERRLA, NO cervical/supraclavicular/submandibular lymphadenopathy, NO pharyngeal erythema/exudate, Nasal Turbinates are swollen and erythematous, NO thyromegaly Cardio: NS1 and NS2, NO M/R/G Resp: CTA B/L, NO R/R/W GI: BSx4, Soft, NT, ND, NO HSM, NO guarding/rebound tenderness Ext: NO edema, Pulses are strong and equal, Capillary Refill Neuro: CN II through XII are grossly intact Skin: Bilateral Cheeks under his navarro what appears to be impetigo Assessment and Plan: 1). Asthma Exacerbation Duoneb Q6H Solumedrol 40 mg IV Q12H Pulmicort 0.5 mg PO INH Q12H Discharge on Prednisone Taper, Pulmicort, and Albuterol Rescue INH 2). Impetigo Bactrim DS 1 tab PO Q12H for a total of 7 days Bactroban 2% Ointment Topical 2x/day to prevent secondary infection Patient stated that he had enough of both Bactrim and Bactroban that were given to him from the ER on Saturday10/23/17 3). Bright Red Blood Per Rectum Patient is scheduled for Colonoscopy through [facility] on 11/27/17 4). Nicotine Addiction Patient declined Nicotine Patch States that he stopped on his own for 10 years and feels like he can again and will 5). Prophylaxis Pepcid 40 mg PO 1x/day Florastor 250 mg PO 2x/day Lovenox 40 mg SC 1x/day Patient is stable for discharge. The following instructions were explained to patient and copy will be provided to him upon discharge: 1). Schedule follow up with [facility] B located at [address] [place] [address] in [place], [place] by calling [phone] for an appointment to take place in the next 7 to 10 days. The physicians at this [facility] can help you to coordinate your care and provide you with future prescriptions and refills. 2). You stated that you have a Colonoscopy already scheduled through [facility] on 11/27/17. 3). You have declined prescription for Nicotine Patch as you stated that you can stop smoking on your own which you need to do immediately. 4). Please have the following prescriptions filled at your pharmacy and use as directed: Albuterol 90 mcg/actuation, 2 puff inhalation by mouth every 6 hours only as needed for Shortness of Breath/Wheezing, Disp #1, NO refills Pulmicort 90 mcg/actuation, 2 puff inhalation by mouth every 12 hours, Disp #1, NO refills Prednisone 10 mg, 5 tablets by mouth 1x/day 10/28/17, 4 tablets by mouth 1x/day 10/29/17, 3 tablets by mouth 1x/day 10/30/17, 2 tablets by mouth 1x/day 10/31/17, 1 tablet by mouth 11/01/17, Disp #15, NO refills 5). Please continue the Bactrim DS 1 tablet by mouth (breakfast and dinner) and the Bactroban 2% Ointment 2x/day to the sides of your face. You stated that you still had these medications at home. Please have your skin on the sides of your face rechecked at your appointment with the health center. 6). Please make sure that you are taking a Probiotic with lunch for the next 33 days. Ask the pharmacist at your pharmacy which one he/she recommends. 7). Stay well hydrated with water. 8). Please take care and be well. José Miguel Quan D.O. Discharge Exam - Head Exam Head Exam: ATRAUMATIC, NORMOCEPHALIC Discharge Plan - Follow Up Plan Condition: FAIR Disposition: HOME/ ROUTINE
[2017-10-27 14:21] VITALS: BP 126/70; PULSE 70; TEMP 97.8; O2SAT 96
== END 2017-10-27 15:58 | disposition home or self-care (01) | DRG 96 ==
LOC: C.ER 18:32 → C.9E 20:40 → C.3T 21:38
PROVIDERS: ADMIT Internal Medicine; ATTEND Family Medicine
DX: J45.901 Unspecified asthma with (acute) exacerbation (principal); L01.00 Impetigo, unspecified; F17.210 Nicotine dependence, cigarettes, uncomplicated; J44.9 Chronic obstructive pulmonary disease, unspecified; K62.5 Hemorrhage of anus and rectum

== ENCOUNTER 2017-11-23 15:57 | Emergency (ER) | payer OTHER ==
[2017-11-23 15:58] VITALS: BMI 30.7
[2017-11-23 16:08] VITALS: TEMP 98.2
[2017-11-23] MEDS ORDERED: Albuterol-Ipratrop 3 mg / 0.5 (3 ml) UD ONE (16:40)
--- NOTE | 2017-11-23 17:35 | C.PDOC ---
History Of Present Illness 57 y/o male presents to the ED with c/o asthma exacerbation for several days. Patient denies relief with home medication. Patient states he is unable to clear chest congestion. Denies fever. CO ASTHMA EXAC X SEV DAYS. NO RELIEF W HOME MEDS. NO FEVER. PS UNABLE TO CLEAR CHEST CONGESTION. EXAM S/P NEB NARD LUNGS CTA B/L OCC EXP WHEEZE NO RETRACTION SPEAKING FULL SENTENCES REMAINDER NEG Time Seen by Provider: 11/23/17 16:45 Chief Complaint (Nursing): Shortness Of Breath History Per: Patient History/Exam Limitations: no limitations Onset/Duration Of Symptoms: Days Current Symptoms Are (Timing): Still Present Associated Symptoms: Other (chest congestion ) Additional History Per: Patient Past Medical History Reviewed: Historical Data, Nursing Documentation, Vital Signs Vital Signs: Last Vital Signs Temp 98.2 F 11/23/17 16:07 Pulse 78 11/23/17 17:44 Resp 16 11/23/17 17:44 BP 121/69 11/23/17 17:44 Pulse Ox 97 11/23/17 23:12 - Medical History PMH: Asthma, Bronchitis, COPD Surgical History: No Surg Hx - [facility] Procedures TETANUS TOXOID ADMINIST (03/25/14) Family History: States: Unknown Family Hx - Social History Hx Tobacco Use: No Hx Alcohol Use: No Hx Substance Use: No - Immunization History Hx Tetanus Toxoid Vaccination: No Hx Influenza Vaccination: No Hx Pneumococcal Vaccination: No Review Of Systems Respiratory: Positive for: Other (asthma exacerbation, chest congestion ) Physical Exam - Physical Exam Appears: Non-toxic, Other (s/p nebulizer no acute respiratory distress ) Skin: Normal Color, Warm, Dry Head: Atraumatic, Normacephalic Eye(s): bilateral: Normal Inspection Ear(s): Bilateral: Normal Nose: Normal, No Discharge Oral Mucosa: Moist Throat: Normal, No Erythema, No Exudate Neck: Supple Chest: Symmetrical, No Deformity, No Tenderness Cardiovascular: Rhythm Regular, No Murmur Respiratory: No Rales, No Rhonchi, Wheezing (bilateral, occasional, expiratory ) , Other (speaking in full sentences. no retractions noted ) Extremity: Normal ROM, Capillary Refill (less than 2 seconds ) Neurological/Psych: Oriented x3, Normal Speech, Normal Cognition ED Course And Treatment O2 Sat by Pulse Oximetry: 97 (on RA) Pulse Ox Interpretation: Normal - Radiology CXR: Interpreted by Me CXR Interpretation: Yes: No Acute Disease Progress Note: CXR ordered. Prednisone PO administered. Disposition Counseled Patient/Family Regarding: Studies Performed, Diagnosis, Need For Followup, Rx Given - Disposition Referrals: YOUR,PMD [Other] Disposition: HOME/ ROUTINE Disposition Time: 17:29 Condition: IMPROVED Additional Instructions: TAKE MUCINEX OR ANY OVER THE COUNTER EXPECTORANT DIRECTED FOR CHEST CONGESTION Prescriptions: Albuterol 0.083% [Albuterol Sulfate 3 Ml] 3 ml IH Q4 #30 neb predniSONE [Prednisone] 60 mg PO DAILY #12 tab Sodium Chloride 0.9% [Sodium Chloride 3 Ml] 3 ml IH PRN PRN #30 neb PRN Reason: Other Instructions: Asthma, Adult (DC) Forms: [employer] (Kiswahili) - Clinical Impression Clinical Impression: Asthma exacerbation - Scribe Statement The provider has reviewed the documentation as recorded by the Scribe (Olivia Quan) Provider Attestation: All medical record entries made by the Scribe were at my direction and personally dictated by me. I have reviewed the chart and agree that the record accurately reflects my personal performance of the history, physical exam, medical decision making, and the department course for this patient. I have also personally directed, reviewed, and agree with the discharge instructions and disposition.
[2017-11-23 17:45] VITALS: BP 121/69; PULSE 78; RESP 16
[2017-11-23 23:12] VITALS: O2SAT 97
--- NOTE | 2017-11-24 08:26 | RAD ---
Chest x-ray two views History: Shortness of breath. Comparison: None available. Findings: Mild venous congestion. Mild patchy increased markings at the left lung base. Heart size within normal limits. Degenerative changes in the spine. Impression: Mild venous congestion.
== END 2017-11-23 17:44 | disposition home or self-care (01) ==
LOC: C.ER 15:57
DX: J45.901 Unspecified asthma with (acute) exacerbation (principal)

== ENCOUNTER 2017-11-27 09:33 | Emergency (ER) | payer OTHER ==
[2017-11-27 09:34] VITALS: BMI 30.7
[2017-11-27 09:48] VITALS: BP 142/80; PULSE 74; RESP 16; TEMP 97.9; O2SAT 97
--- NOTE | 2017-11-27 10:23 | C.PDOC ---
History Of Present Illness 57 y/o male presents to the ER complaining of a recurrent facial rash, located under his navarro. Patient has been seen here in the past for the same rash, was diagnosed with impetigo, and treated with Bactroban and PO steroids with resolution of symptoms. Of note, patient recently used a dye near the area which exacerbated the rash yesterday. Denies any associated fever or chills. PMD: Non-H provider Time Seen by Provider: 11/27/17 09:49 Chief Complaint (Nursing): Abnormal Skin Integrity History Per: Patient History/Exam Limitations: no limitations Onset/Duration Of Symptoms: Days (x2) Current Symptoms Are (Timing): Still Present Past Medical History Reviewed: Historical Data, Nursing Documentation, Vital Signs Vital Signs: Last Vital Signs Temp 97.9 F 11/27/17 09:46 Pulse 74 11/27/17 09:46 Resp 16 11/27/17 09:46 BP 142/80 11/27/17 09:46 Pulse Ox 97 11/27/17 10:24 - Medical History PMH: Asthma, Bronchitis, COPD - [facility] Procedures TETANUS TOXOID ADMINIST (03/25/14) Family History: States: Unknown Family Hx - Social History Hx Tobacco Use: No Hx Alcohol Use: No Hx Substance Use: No - Immunization History Hx Tetanus Toxoid Vaccination: No Hx Influenza Vaccination: No Hx Pneumococcal Vaccination: No Review Of Systems Except As Marked, All Systems Reviewed And Found Negative. Constitutional: Negative for: Fever, Chills Skin: Positive for: Rash (facial, under navarro) Physical Exam - Physical Exam Appears: Well, Non-toxic, No Acute Distress Skin: Warm, Dry, Rash (Facial region under navarro: (+) erythema, irritation, oozing rash. No crusting) Head: Atraumatic, Normacephalic Eye(s): bilateral: Normal Inspection Neurological/Psych: Oriented x3, Normal Speech ED Course And Treatment O2 Sat by Pulse Oximetry: 97 (RA) Pulse Ox Interpretation: Normal Medical Decision Making Medical Decision Making: Time: 10:20 Plan: Patient is medically stable. Will d/c with prescriptions for Bactroban, Bacitracin, and Prednisone. Return to the ER if symptoms persist or worsen. Disposition Counseled Patient/Family Regarding: Diagnosis, Need For Followup, Rx Given - Disposition Referrals: [facility] at [facility] [Outside] Disposition: HOME/ ROUTINE Disposition Time: 10:20 Condition: STABLE Prescriptions: Bacitracin Ointment [Bacitracin] 1 appl TOP BID #1 tube Mupirocin 2% Ointment [Bactroban Ointment] 1 appl TP BID #1 tube Prednisone [Deltasone] 60 mg PO DAILY #12 tablet Instructions: Skin Rash Forms: [facility] (Nigerian), General Discharge Instructions - POA Present On Arrival: None - Clinical Impression Clinical Impression: Skin irritation, Contact dermatitis - Scribe Statement The provider has reviewed the documentation as recorded by the Leonard Becerra Provider Attestation: All medical record entries made by the Leonard were at my direction and personally dictated by me. I have reviewed the chart and agree that the record accurately reflects my personal performance of the history, physical exam, medical decision making, and the department course for this patient. I have also personally directed, reviewed, and agree with the discharge instructions and disposition.
== END 2017-11-27 10:34 | disposition home or self-care (01) ==
LOC: C.ER 09:33
DX: L25.9 Unspecified contact dermatitis, unspecified cause (principal)

== ENCOUNTER 2018-01-08 21:48 | Emergency (ER) | payer OTHER ==
[2018-01-08 21:48] VITALS: BMI 30.7
[2018-01-08] MEDS ORDERED: Albuterol-Ipratrop 3 mg / 0.5 (3 ml) UD ONE ×2 (22:13→22:42)
[2018-01-08 22:19] VITALS: RESP 20
[2018-01-08] MEDS ORDERED: Albuterol-Ipratrop 3 mg / 0.5 (3 ml) UD IH STA (22:28)
[2018-01-08] MEDS ORDERED: Albuterol 0.083% Inhal Sol (2.5 mg/3 mL) UD IH STA ×2 (22:28→23:39)
--- NOTE | 2018-01-08 22:32 | C.PDOC ---
History Of Present Illness 57 year old male, whose PMHx includes Asthma and COPD, presents to the ED for evaluation of chest tightness, cough (occasionally productive of white-yellow sputum), and shortness of breath which began yesterday. Patient was discharged around 2 weeks ago after he was admitted for Asthma/COPD exacerbation. Patient states he was doing fine and taking Albuterol and Cromolyn via nebulizer as prescribed. He notes being in his [employer]ose[employer] basement yesterday, which may have exacerbated his symptoms. Patient used his nebulizer three times and took 20mg of Prednisone at home without relief. Patient has history of recent smoking. He denies fever, chills, drug use. Time Seen by Provider: 01/08/18 22:22 Chief Complaint (Nursing): Shortness Of Breath History Per: Patient History/Exam Limitations: no limitations Onset/Duration Of Symptoms: Hrs Current Symptoms Are (Timing): Still Present Initiating Event: Other (exposure to dust ) Exacerbating Factor(s): Coughing Current Respiratory Medications: See Home Med List, Albuterol, Other (Cromolyn) Associated Symptoms: Productive Cough (occasional). denies: Fever, Chills Additional History Per: Patient Past Medical History Reviewed: Historical Data, Nursing Documentation, Vital Signs Vital Signs: Last Vital Signs Temp 97.6 F 01/08/18 22:15 Pulse 81 01/08/18 22:15 Resp 20 01/08/18 22:23 BP 137/75 01/08/18 22:15 Pulse Ox 94 L 01/08/18 23:38 - Medical History PMH: Asthma, Bronchitis, COPD Surgical History: No Surg Hx - [facility] Procedures TETANUS TOXOID ADMINIST (03/25/14) Family History: States: Unknown Family Hx - Social History Hx Tobacco Use: Yes Hx Alcohol Use: No Hx Substance Use: No - Immunization History Hx Tetanus Toxoid Vaccination: No Hx Influenza Vaccination: No Hx Pneumococcal Vaccination: No Review Of Systems Constitutional: Negative for: Fever, Chills Cardiovascular: Positive for: Other (chest tightness ) Respiratory: Positive for: Cough, Shortness of Breath, Sputum (occasional, white /yellow ) Physical Exam - Physical Exam Appears: Non-toxic, No Acute Distress Skin: Normal Color, Warm, Dry Head: Atraumatic, Normacephalic Eye(s): bilateral: Normal Inspection Ear(s): Bilateral: Normal Nose: Normal, No Discharge Oral Mucosa: Moist Throat: Normal, No Erythema, No Exudate Neck: Supple Chest: Symmetrical, No Deformity, No Tenderness Cardiovascular: Rhythm Regular, No Murmur Respiratory: No Rales, No Rhonchi, Wheezing (expiratory ), Other (speaking in complete sentences ) Extremity: Normal ROM, Capillary Refill (less than 2 seconds ) Neurological/Psych: Oriented x3, Normal Speech, Normal Cognition ED Course And Treatment O2 Sat by Pulse Oximetry: 94 - Radiology CXR: Interpreted by Me CXR Interpretation: Yes: No Acute Disease Progress Note: CXR ordered and reviewed. Albuterol INH and Solu-Medrol IVP administered. 11:38 Patient feels better and is resting quietly. Still with mild expiratory wheezing but speaking in full sentences and has no respiratory distress. Additional albuterol treatment ordered. Reevaluation Time: 00:29 Reassessment Condition: Improved (Feels much better. No respiratory distress.) Disposition Counseled Patient/Family Regarding: Studies Performed, Diagnosis, Need For Followup, Rx Given - Disposition Referrals: [facility] [Outside] Disposition: HOME/ ROUTINE Disposition Time: 00:29 Condition: IMPROVED Prescriptions: Albuterol 0.083% [Albuterol 0.083% Inhal Brandi (2.5 mg/3 ml) UD] 3 ml IH QID PRN # 25 neb PRN Reason: Wheezing Methylprednisolone [Medrol Dose Pack (21 tabs)] 4 mg PO DAILY #21 mg Instructions: Asthma in Adults, Avoiding Asthma Triggers Forms: [facility] (French) - Clinical Impression Clinical Impression: Asthma exacerbation - Scribe Statement The provider has reviewed the documentation as recorded by the Scribe (Olivia Quan) Provider Attestation: All medical record entries made by the Scribe were at my direction and personally dictated by me. I have reviewed the chart and agree that the record accurately reflects my personal performance of the history, physical exam, medical decision making, and the department course for this patient. I have also personally directed, reviewed, and agree with the discharge instructions and disposition.
[2018-01-08] MEDS ORDERED: Albuterol 0.083% Inhal Sol (2.5 mg/3 mL) UD ONE ×2 (22:42→23:52)
[2018-01-09] MEDS ORDERED: Albuterol 0.083% Inhal Sol (2.5 mg/3 mL) UD ONE (00:02)
[2018-01-09 00:52] VITALS: BP 144/71; PULSE 80; TEMP 97.1; O2SAT 98
--- NOTE | 2018-01-09 08:28 | RAD ---
Chest x-ray single frontal view History: Shortness of breath. Comparison: 11/23/2017 Findings: Mild linear increased markings at the left lung base may represent mild atelectasis. Heart size is within normal limits. Degenerative changes. Impression: Mild linear increased markings at the left lung base may represent mild atelectasis.
== END 2018-01-09 00:52 | disposition home or self-care (01) ==
LOC: C.ER 21:48
DX: J45.901 Unspecified asthma with (acute) exacerbation (principal); F17.210 Nicotine dependence, cigarettes, uncomplicated
CPT/HCPCS: 71045; 94640; 96374; 99285; J2930

== ENCOUNTER 2018-02-24 10:13 | Emergency (ER) | payer OTHER ==
[2018-02-24 10:13] VITALS: BMI 30.7
[2018-02-24] MEDS ORDERED: Albuterol-Ipratrop 3 mg / 0.5 (3 ml) UD ONE (10:31)
--- NOTE | 2018-02-24 11:22 | C.PDOC ---
History Of Present Illness 57-YEAR-OLD MALE, PRESENTS TO THE EMERGENCY DEPARTMENT WITH COMPLAINTS OF ASTHMA EXAC X 3 DAYS. NO IMPROVE W MDI AND NEB. NO FEVER. EXAM MOD DIST NONTOXIC SP NEB B/L EXP WHEEZE DEC BS +TACHYPNEA, RETRACTIONS. SPEAKING 5-6 WORD SENTENCES WARM DRY REMAINDER NEG Time Seen by Provider: 02/24/18 11:06 Chief Complaint (Nursing): Shortness Of Breath History Per: Patient History/Exam Limitations: no limitations Onset/Duration Of Symptoms: Days Current Symptoms Are (Timing): Still Present Past Medical History Reviewed: Historical Data, Nursing Documentation, Vital Signs Vital Signs: Last Vital Signs Temp 97.5 F L 02/24/18 12:23 Pulse 58 L 02/24/18 12:23 Resp 20 02/24/18 12:23 BP 123/55 L 02/24/18 12:23 Pulse Ox 97 02/24/18 12:49 - Medical History PMH: Asthma, Bronchitis, COPD - [facility] Procedures TETANUS TOXOID ADMINIST (03/25/14) Family History: States: No Known Family Hx - Social History Hx Tobacco Use: Yes Hx Alcohol Use: Yes Hx Substance Use: No - Immunization History Hx Tetanus Toxoid Vaccination: No Hx Influenza Vaccination: No Hx Pneumococcal Vaccination: No Review Of Systems Constitutional: Negative for: Fever, Chills Cardiovascular: Negative for: Chest Pain, Palpitations, Edema Respiratory: Positive for: Shortness of Breath, Wheezing. Negative for: SOB with Excertion Gastrointestinal: Negative for: Vomiting Musculoskeletal: Negative for: Back Pain Skin: Negative for: Rash Neurological: Negative for: Weakness, Numbness, Headache, Dizziness Physical Exam - Physical Exam Appears: Non-toxic, No Acute Distress, Other (MOD DIST NONTOXIC SP NEB) Skin: Warm, Dry, No Rash Head: Atraumatic, Normacephalic Eye(s): bilateral: PERRL Nose: Normal Oral Mucosa: Moist Lips: Normal Appearing Neck: Normal ROM Chest: Symmetrical Cardiovascular: Rhythm Regular, No Murmur Respiratory: Other (B/L EXP WHEEZE DEC BS +TACHYPNEA, RETRACTIONS. SPEAKING 5-6 WORD SENTENCES) Gastrointestinal/Abdominal: Soft, No Tenderness Extremity: Normal ROM, No Deformity, No Swelling Neurological/Psych: Oriented x3, Normal Speech ED Course And Treatment O2 Sat by Pulse Oximetry: 97 (ra) Pulse Ox Interpretation: Normal Progress - Re-Evaluation Re-evaluation Note: 02/24/18 12:42 FEELS BETTER. NOW CO B/L INNER ARM AND LOWER BACK RASH X SEV DAYS. +ITCH. EXAM: C/W HEAT RASH. - Data Reviewed Data Reviewed: Old records Disposition Counseled Patient/Family Regarding: Diagnosis, Need For Followup, Rx Given - Disposition Referrals: [facility] [Outside] [facility] [Outside] Disposition: HOME/ ROUTINE Disposition Time: 12:43 Condition: IMPROVED Prescriptions: Albuterol/Ipratropium [Duoneb 3 mg/0.5 mg (3 ml) UD] 3 ml IH Q6 #120 neb Mupirocin 2% Ointment [Bactroban Ointment] 22 applic NS BID #1 tube predniSONE [Prednisone] 60 mg PO DAILY #12 tab Instructions: Asthma, Adult (DC), Heat Rash Forms: [employer] (Afghan) - Clinical Impression Clinical Impression: Asthma exacerbation, Heat rash - Scribe Statement The provider has reviewed the documentation as recorded by the Scribe (Mali Bernardo) All medical record entries made by the Scribe were at my direction and personally dictated by me. I have reviewed the chart and agree that the record accurately reflects my personal performance of the history, physical exam, medical decision making, and the department course for this patient. I have also personally directed, reviewed, and agree with the discharge instructions and disposition.
[2018-02-24] MEDS ORDERED: Albuterol 0.083% Inhal Sol (2.5 mg/3 mL) UD ONE (11:43)
[2018-02-24] MEDS: Albuterol-Ipratrop 3 mg / 0.5 (3 ml) UD IH SCH (11:44)
[2018-02-24 12:24] VITALS: BP 123/55; PULSE 58; RESP 20; TEMP 97.5
[2018-02-24 12:48] VITALS: O2SAT 97
== END 2018-02-24 13:00 | disposition home or self-care (01) ==
LOC: C.ER 10:13
DX: J45.901 Unspecified asthma with (acute) exacerbation (principal); L74.0 Miliaria rubra
CPT/HCPCS: 94640; 96372; 99284; J3105

== ENCOUNTER 2018-05-14 17:04 | Emergency (ER) | payer OTHER ==
[2018-05-14 17:04] VITALS: BMI 30.7
[2018-05-14] MEDS ORDERED: Albuterol-Ipratrop 3 mg / 0.5 (3 ml) UD INH STA (17:07)
[2018-05-14] MEDS ORDERED: Albuterol-Ipratrop 3 mg / 0.5 (3 ml) UD ONE (17:21)
[2018-05-14] MEDS ORDERED: Albuterol 0.083% Inhal Sol (2.5 mg/3 mL) UD IH STA (17:54)
[2018-05-14 18:08] LABS: BASO # 0.1 K/uL (0.0-0.2); BASO % 0.9 % (0.0-2.0); EOS # 0.4 K/uL (0.0-0.7); EOS % 6.9 % (0.0-4.0); HEMOGLOBIN 13.5 g/dL (12.0-18.0); LYMPH # 2.3 K/uL (1.0-4.3); LYMPH % 43.1 % (20.0-40.0); MEAN CELL VOLUME 92.1 fL (80.0-94.0); MEAN CORPUSCULAR HEMOGLOBIN 32.8 pg (27.0-31.0); MEAN CORPUSCULAR HGB CONC 35.6 g/dL (33.0-37.0); MONO # 0.6 K/uL (0.0-0.8); MONO % 11.3 % (0.0-10.0); NEUT % 37.8 % (50.0-75.0); NRBC % 0.2 % (0.0-2.0); RBC 4.13 Mil/uL (4.40-5.90); RED CELL DISTRIBUTION WIDTH 13.3 % (11.5-14.5); WHITE BLOOD COUNT 5.3 K/uL (4.8-10.8)
[2018-05-14 18:20] LABS: ALB/GLOB RATIO 1.8 (1.0-2.1); ALBUMIN 4.2 g/dL (3.5-5.0); ALT/SGPT 29 U/L (21-72); AST/SGOT 18 U/L (17-59); BLOOD UREA NITROGEN 20 mg/dL (9-20); CALCIUM 8.9 mg/dl (8.6-10.4); GFR AFRICAN-AMERICAN > 60; GFR NON-AFRICAN AMERICAN > 60
--- NOTE | 2018-05-14 18:24 | RAD ---
Date of service: 05/14/2018 PROCEDURE: CHEST RADIOGRAPH, 1 VIEW HISTORY: SOB COMPARISON: 01/08/2018. FINDINGS: LUNGS: The lungs are well inflated and clear. PLEURA: No pneumothorax or pleural fluid seen. CARDIOVASCULAR: Normal. OSSEOUS STRUCTURES: No significant abnormalities. VISUALIZED UPPER ABDOMEN: Normal. OTHER FINDINGS: None. IMPRESSION: No active pulmonary disease.
--- NOTE | 2018-05-14 18:34 | C.PDOC ---
History Of Present Illness 57yo male, with history of asthma, on symbicort, comes to ER for evaluation of shortness of breath on exertion x 2 days. Patient states he has been using his rescue inhaler and states he has relief for 5 minutes, after which the symptoms return with associated chest tightness. He denies any cough, fever, or chills. Patient states he was hospitalized "many years ago" due to the asthma but has never been intubated. Otherwise, he has no additional medical complaints. Time Seen by Provider: 05/14/18 17:46 Chief Complaint (Nursing): Shortness Of Breath History Per: Patient History/Exam Limitations: no limitations Onset/Duration Of Symptoms: Days Current Symptoms Are (Timing): Still Present Quality: Tightness Exacerbating Factor(s): Exertion Associated Symptoms: denies: Fever, Chills, Chest Pain, Ankle/Leg Swelling Additional History Per: Patient Past Medical History Reviewed: Historical Data, Nursing Documentation, Vital Signs Vital Signs: Last Vital Signs Temp 97.7 F 05/14/18 17:07 Pulse 51 L 05/14/18 18:05 Resp 21 05/14/18 18:05 BP 119/75 05/14/18 18:05 Pulse Ox 99 05/14/18 18:38 - Medical History PMH: Asthma, Bronchitis, COPD Surgical History: No Surg Hx - [facility] Procedures TETANUS TOXOID ADMINIST (03/25/14) Family History: States: No Known Family Hx - Social History Hx Tobacco Use: Yes Hx Alcohol Use: Yes Hx Substance Use: No - Immunization History Hx Tetanus Toxoid Vaccination: No Hx Influenza Vaccination: No Hx Pneumococcal Vaccination: No Review Of Systems Constitutional: Negative for: Fever, Chills Cardiovascular: Positive for: Other (chest tightness) Respiratory: Positive for: Shortness of Breath, SOB with Excertion, Wheezing. Negative for: Cough, Pleuritic Pain Gastrointestinal: Negative for: Vomiting Physical Exam - Physical Exam Appears: Non-toxic, No Acute Distress Skin: Normal Color, Warm Head: Atraumatic, Normacephalic Eye(s): bilateral: Normal Inspection Oral Mucosa: Moist Neck: Normal ROM, Supple Chest: Symmetrical Cardiovascular: Rhythm Regular Respiratory: Decreased Breath Sounds (diminished breath sounds), Wheezing (fine wheeze), Other (breathing easy at rest) Gastrointestinal/Abdominal: Normal Exam, Soft, No Tenderness Back: Normal Inspection Extremity: Normal ROM, No Pedal Edema Neurological/Psych: Oriented x3 ED Course And Treatment - Laboratory Results Result Diagrams: 05/14/18 18:01 05/14/18 18:01 Lab Interpretation: No Acute Changes ECG: Interpreted By Me ECG Rhythm: Sinus Rhythm (with left axis and LVH) ECG Interpretation: No Acute Changes O2 Sat by Pulse Oximetry: 99 (RA) Pulse Ox Interpretation: Normal - Radiology CXR: Viewed By Me, Read By Radiologist CXR Interpretation: Yes: No Acute Disease Reevaluation Time: 19:48 Reassessment Condition: Improved (Patient without any evidence of respiratory distress. Lungs clear with better aeration.) Medical Decision Making Medical Decision Making: Plan: * Labs * EKG * CXR * Duoneb 3ml INH * Albuterol 2.5mg INH * Prednisone 60mg PO Disposition Counseled Patient/Family Regarding: Studies Performed, Diagnosis, Need For Followup, Rx Given - Disposition Referrals: [facility] [Outside] Disposition: HOME/ ROUTINE Disposition Time: 19:49 Condition: IMPROVED Prescriptions: Albuterol 0.083% [Albuterol Sulfate 3 Ml] 3 ml IH QID PRN #50 neb PRN Reason: Wheezing Albuterol Sulfate [Proair Hfa] 0.09 mg IH QID PRN #1 inhaler PRN Reason: Wheezing Budesonide/Formoterol Fumarate [Symbicort] 1 aer IH BID #1 inhaler Prednisone 50 mg PO DAILY #4 tab Instructions: Asthma in Adults Forms: [facility] (Kiswahili) - Clinical Impression Clinical Impression: Exacerbation of asthma - Scribe Statement The provider has reviewed the documentation as recorded by the Leonard Wong Provider Attestation: All medical record entries made by the Leonard were at my direction and personally dictated by me. I have reviewed the chart and agree that the record accurately reflects my personal performance of the history, physical exam, medical decision making, and the department course for this patient. I have also personally directed, reviewed, and agree with the discharge instructions and disposition.
[2018-05-14 20:32] VITALS: BP 127/70; PULSE 57; RESP 20; TEMP 98; O2SAT 97
--- NOTE | 2018-05-15 11:11 | CARD ---
APPROVED REPORT Date of service: 05/14/2018 EKG Measurement Heart [id number] <Conclusion> Sinus bradycardia Left axis deviation Voltage criteria for left ventricular hypertrophy Abnormal ECG
== END 2018-05-14 20:10 | disposition home or self-care (01) ==
LOC: C.ER 17:04
DX: J45.901 Unspecified asthma with (acute) exacerbation (principal); F17.210 Nicotine dependence, cigarettes, uncomplicated

== ENCOUNTER 2018-06-13 10:20 | Emergency (ER) | payer OTHER ==
[2018-06-13 10:20] VITALS: BMI 30.7
--- NOTE | 2018-06-13 12:10 | C.PDOC ---
History Of Present Illness 57 y/o male with a history of asthma presents to the ED complaining of SOB and wheezing since yesterday. Patient states he went to the clinic but the next available appointment is 07/03. He reports using his albuterol inhaler at home, last dose around 1:00am today. He then ran out of the medication and is requesting a med refill. Also reports coughing up phlegm and states his chest feels tight. Otherwise patient denies any fever, chills, runny nose, nausea, vomiting, diarrhea, chest pain, or dizziness. Time Seen by Provider: 06/13/18 11:16 Chief Complaint (Nursing): Med Refill History Per: Patient History/Exam Limitations: no limitations Onset/Duration Of Symptoms: Days Current Symptoms Are (Timing): Still Present Past Medical History Reviewed: Historical Data, Nursing Documentation, Vital Signs Vital Signs: Last Vital Signs Temp 98.9 F 06/13/18 13:10 Pulse 44 L 06/13/18 13:10 Resp 20 06/13/18 13:10 BP 118/72 06/13/18 13:10 Pulse Ox 96 06/13/18 13:10 - Medical History PMH: Asthma, Bronchitis, COPD - [facility] Procedures TETANUS TOXOID ADMINIST (03/25/14) Family History: States: Unknown Family Hx - Social History Hx Tobacco Use: Yes Hx Alcohol Use: Yes Hx Substance Use: No - Immunization History Hx Tetanus Toxoid Vaccination: No Hx Influenza Vaccination: No Hx Pneumococcal Vaccination: No Review Of Systems Except As Marked, All Systems Reviewed And Found Negative. Constitutional: Negative for: Fever, Chills, Sweats Cardiovascular: Positive for: Other (chest tightness). Negative for: Chest Pain , Palpitations, Light Headedness Respiratory: Positive for: Cough, Shortness of Breath, Wheezing. Negative for: Hemoptysis Gastrointestinal: Negative for: Nausea, Vomiting, Diarrhea Neurological: Negative for: Weakness, Numbness, Dizziness Physical Exam - Physical Exam Appears: Non-toxic, No Acute Distress Skin: Warm, Dry, No Rash Head: Atraumatic, Normacephalic Eye(s): bilateral: Normal Inspection Ear(s): Bilateral: Normal Oral Mucosa: Moist Throat: No Erythema, No Exudate Neck: Normal ROM Lymphatic: Normal Exam Chest: Symmetrical, No Deformity, No Tenderness Cardiovascular: Rhythm Regular, No Murmur Respiratory: No Accessory Muscle Use, No Rales, No Rhonchi, Wheezing (mild expiratory wheezing) Extremity: Bilateral: Atraumatic, Normal Color And Temperature, Normal ROM Neurological/Psych: Oriented x3, Normal Speech ED Course And Treatment O2 Sat by Pulse Oximetry: 97 (RA) Pulse Ox Interpretation: Normal Medical Decision Making Medical Decision Making: Plan: * Duoneb 3 ml INH * Prednisone 60 mg PO * Peak Flow pre/post neb * Reassess on dispo On re-evaluation patient reports improvement in symptoms. Lungs are clear bilaterally. Patient will be discharged home, prescriptions provided. Disposition - Disposition Referrals: [facility] at [facility] [Outside] Disposition: HOME/ ROUTINE Disposition Time: 13:04 Condition: STABLE Additional Instructions: Follow up with the medical doctor within 1-2 days. Return if worsened. Prescriptions: Albuterol 0.5% [Albuterol 0.5% Inhal Brandi (2.5 mg/0.5 ml) UD] 0.5 ml IH Q6 PRN # 20 neb PRN Reason: Wheezing Albuterol HFA [Ventolin HFA 90 mcg/actuation (8 g)] 1 puff IH Q6 #100 puff Loratadine [Claritin] 10 mg PO DAILY #10 tab predniSONE [Prednisone] 20 mg PO BID #10 tab Instructions: Asthma in Adults Forms: [facility] (Grenadian) - Clinical Impression Clinical Impression: Asthma exacerbation - PA / TAIL SAWYER / Resident Statement MD/DO has reviewed & agrees with the documentation as recorded. - Scribe Statement The provider has reviewed the documentation as recorded by the Scribe (Erin Becerra) All medical record entries made by the Scribe were at my direction and personally dictated by me. I have reviewed the chart and agree that the record accurately reflects my personal performance of the history, physical exam, medical decision making, and the department course for this patient. I have also personally directed, reviewed, and agree with the discharge instructions and disposition.
[2018-06-13] MEDS ORDERED: Albuterol-Ipratrop 3 mg / 0.5 (3 ml) UD ONE (12:20)
[2018-06-13] MEDS: Albuterol-Ipratrop 3 mg / 0.5 (3 ml) UD IH SCH ×2 (12:34→12:35)
[2018-06-13 13:10] VITALS: BP 118/72; PULSE 44; RESP 20; TEMP 98.9
[2018-06-16 22:19] VITALS: O2SAT 97
== END 2018-06-13 13:37 | disposition home or self-care (01) ==
LOC: C.ER 10:20
DX: J45.901 Unspecified asthma with (acute) exacerbation (principal)

== ENCOUNTER 2018-07-18 09:59 | Emergency (ER) | payer OTHER ==
[2018-07-18 10:00] VITALS: BMI 30.1
[2018-07-18 10:15] VITALS: RESP 20
--- NOTE | 2018-07-18 10:34 | C.PDOC ---
History Of Present Illness 57 y/o male presents to ED with c/o sob and wheezing intermittently for 5 days worse earlier today. Patient states he was seen on 06/18/18 for same and discharged on steroids which he finished with no improvement. Patient states he was walking out of work when he developed symptoms and had to sit down earlier today. Patient admits to chest tightness and denies smoking, leg pain, cough, fever, chills or any other complaints at this time. Time Seen by Provider: 07/18/18 10:24 Chief Complaint (Nursing): Shortness Of Breath History Per: Patient History/Exam Limitations: no limitations Onset/Duration Of Symptoms: Days Current Symptoms Are (Timing): Still Present Past Medical History Reviewed: Historical Data, Nursing Documentation, Vital Signs Vital Signs: Last Vital Signs Temp 97.5 F L 07/18/18 10:21 Pulse 59 L 07/18/18 10:13 Resp 20 07/18/18 10:13 BP 151/95 H 07/18/18 10:13 Pulse Ox 100 07/18/18 10:13 - Medical History PMH: Asthma, Bronchitis, COPD Surgical History: No Surg Hx - [facility] Procedures TETANUS TOXOID ADMINIST (03/25/14) Family History: States: No Known Family Hx - Social History Hx Tobacco Use: Yes Hx Alcohol Use: No Hx Substance Use: No - Immunization History Hx Tetanus Toxoid Vaccination: No Hx Influenza Vaccination: No Hx Pneumococcal Vaccination: No Review Of Systems Constitutional: Negative for: Fever, Chills Respiratory: Positive for: Shortness of Breath, Wheezing Gastrointestinal: Negative for: Nausea, Vomiting Skin: Negative for: Rash Physical Exam - Physical Exam Appears: Non-toxic, No Acute Distress Skin: Warm, Dry, No Rash Head: Atraumatic, Normacephalic Eye(s): bilateral: Normal Inspection Oral Mucosa: Moist Neck: Normal ROM, Supple Cardiovascular: Rhythm Regular Respiratory: No Rales, No Rhonchi, Wheezing (bilaterally) Gastrointestinal/Abdominal: Soft, No Tenderness, No Guarding, No Rebound Neurological/Psych: Oriented x3, Normal Speech, Normal Cognition ED Course And Treatment O2 Sat by Pulse Oximetry: 100 (RA) Pulse Ox Interpretation: Normal Progress Note: Neb treatment administered. Medical Decision Making Medical Decision Making: patient feeling much better Disposition Counseled Patient/Family Regarding: Studies Performed, Diagnosis, Need For Followup, Rx Given - Disposition Referrals: at [facility] [Outside] Disposition: HOME/ ROUTINE Disposition Time: 12:33 Condition: IMPROVED Prescriptions: Prednisone [Deltasone] 60 mg PO DAILY #12 tablet Instructions: Asthma, Adult (DC) Forms: [facility] (Austrian), General Discharge Instructions - POA Present On Arrival: None - Clinical Impression Clinical Impression: Asthma, Wheezing - Scribe Statement The provider has reviewed the documentation as recorded by the Hectoribsharda Cordova All medical record entries made by the Hectoribsharda were at my direction and personally dictated by me. I have reviewed the chart and agree that the record accurately reflects my personal performance of the history, physical exam, medical decision making, and the department course for this patient. I have also personally directed, reviewed, and agree with the discharge instructions and disposition.
[2018-07-18] MEDS: Albuterol-Ipratrop 3 mg / 0.5 (3 ml) UD IH SCH ×3 (10:45→11:15)
[2018-07-18] MEDS ORDERED: Albuterol-Ipratrop 3 mg / 0.5 (3 ml) UD ONE (11:13)
[2018-07-18 12:28] VITALS: BP 142/82; PULSE 57; TEMP 97.2
[2018-07-18 12:35] VITALS: O2SAT 100
== END 2018-07-18 12:53 | disposition home or self-care (01) ==
LOC: C.ER 09:59
DX: J45.909 Unspecified asthma, uncomplicated (principal); F17.210 Nicotine dependence, cigarettes, uncomplicated
CPT/HCPCS: 94640; 96374; 99285; J2930